=== PATIENT | male | born 1995 | race Caucasian/White ===

== ENCOUNTER 2019-10-16 12:51 | Emergency (ER) | payer MEDICAID ==
[~2019-10-16] VITALS: Ht 180.3 cm; Wt 82.0 kg
--- NOTE | 2019-10-16 13:01 | NUR ---
SHERRY PANDYA FROM [facility]. PT FOUND TO BE SLOW TO RESPOND. PT STATES HE'S TAKEN HEROIN RECENTLY AND ETOH OF UNKNOWN AMOUNT AND TIME. HYPERDERMIC NEEDLES FOUND ON PT BY YA. 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 PT LETHARGIC, BUT WILL ANSWER QUESTIONS WHEN AROUSED. CONNECTED TO MONITORING. CALL LIGHT IN REACH. AWAITING ORDERS AT THIS TIME.
[2019-10-16] MEDS ORDERED: NALOXONE 0.4 MG/ML, 1ML ONE (13:46)
--- NOTE | 2019-10-16 13:55 | NUR ---
RECEIVED VERBAL ORDER FROM MD FOR NARCAN 0.4MG. IV MED GIVEN WITH MD AT BEDSIDE. PT HAD NO REACTION TO NARCAN. AWAITING FURTHER ORDERS AT THIS TIME.
--- NOTE | 2019-10-16 14:06 | NUR ---
PT REFUSING TO PROVIDE URINE SAMPLE. NOTIFIED.
[2019-10-16] MEDS ORDERED: NALOXONE 0.4 MG/ML, 1ML IVPush ONE (14:30)
[2019-10-16 14:40] LABS: SALICYLATE LEVEL < 1.7 mg/dL (2.8-20.0)
[2019-10-16 15:18] VITALS: BP 106/65
--- NOTE | 2019-10-16 15:30 | NUR ---
PT GIVEN DC INSTRUCTIONS, BUT PT REFUSING TO GET DRESSED AND LEAVE HOSPITAL. SECURITY CALLED FOR ASSISTANCE.
--- NOTE | 2019-10-16 15:35 | NUR ---
SECURITY ESCORTED PT OUT OF HOSPITAL.
== END 2019-10-16 15:36 | disposition home or self-care (01) ==
LOC: ED 15:30
DX: R41.82 Altered mental status, unspecified (principal)
CPT/HCPCS: 36415; 80307; 96374; 99283; J2310